=== PATIENT | female | born 1940 | race Hispanic/Latino ===

== ENCOUNTER 2019-05-10 07:16 | Day surgery (SDC) | payer MEDICARE ==
--- NOTE | 2019-05-10 07:53 | Anesthesia Consultation ---
Anesthesia Consult and Med Hx Date of service: 05/10/19 - Airway Anesthetic Teeth Evaluation: Good ROM Head & Neck: Inadequate (restricted extension) Mental/Hyoid Distance: Adequate Mallampati Class: Class II Intubation Access Assessment: Probably Good - Pulmonary Exam CTA: Yes - Cardiac Exam Cardiac Exam: RRR - Pre-Operative Health Status ASA Pre-Surgery Classification: ASA3 Proposed Anesthetic Plan: MAC - Pulmonary Hx Smoking: No SOB: Yes (on exertion) - Cardiovascular System Hx Hypertension: Yes Hx Heart Attack/AMI: No Hx Percutaneous Transluminal Coronary Angioplasty (PTCA): No Hx Cardia Arrhythmia: No - Central Nervous System CVA: No - Gastrointestinal Hx Gastroesophageal Reflux Disease: Yes (well controlled) - Endocrine Hx Renal Disease: No Hx Liver Disease: No Hx Insulin Dependent Diabetes: No Hx Non-Insulin Dependent Diabetes: No Hx Thyroid Disease: No - Other Systems Hx Obesity: Yes (BMI 32) - Additional Comments Anesthesia Medical History Comments: No prior anesthetics. PMH HTN w/ WILKINS and heart murmur noted by PCP now scheduled for STEPHANIE. Patient states that outpatient cardiac work up was concerning for "blood clot on the right side of the heart."
--- NOTE | 2019-05-10 07:53 | Anesthesia Day of Surgery ---
Anesthesia Day of Surgery - Day of Surgery Patient Examined: Yes Patient H&P Reviewed: Yes Patient is NPO: Yes
[2019-05-10] MEDS ORDERED: BENZOCAINE 20% TOP SPRAY 0.5 ML UNIT DOSE MM NR (08:00)
[2019-05-10] MEDS ORDERED: SODIUM CHLORIDE 0.9% 500 ML 500 ML IV SCH (08:00)
[2019-05-10] MEDS ORDERED: LIDOCAINE (2%) 20 MG/1 ML VIAL 20 ML MDV INFILTRATI ONE (08:01)
[2019-05-10] MEDS ORDERED: MIDAZOLAM 2 MG/2 ML INJ ONE (08:02)
[2019-05-10] MEDS ORDERED: propofoL 200 MG/20 ML VIAL IV ONE ×2 (08:02)
--- NOTE | 2019-05-10 09:52 | Post Anesthesia Evaluation ---
- Post Anesthesia Evaluation Patient Participated: Yes (awake, alert and oriented) Airway Patent: Yes Stable Respiratory Function: Yes (feels breathing has returned to baseline) Nausea/Vomiting: No Temp > 96.8F: Yes Pain Manageable: Yes Adequeate Hydration: Yes Anesthesia Complications: No Other Comments: Complains of mild scratchy throat but otherwise feels well.
[2019-05-10 10:14] LABS: Hematocrit 37.5 % (30.3-42.9); Hemoglobin 12.9 gm/dl (10.1-14.3)
[2019-05-10] MEDS ORDERED: HEPARIN 10,000 UNITS/10 ML VIAL IV ONE (10:30)
[2019-05-10] MEDS ORDERED: HEPARIN/ 0.45% NACL DRIP 25,000 UNIT/500 ML BAG IV SCH (11:00)
[2019-05-10 11:01] LABS: INR 0.98 (0.87-1.13); Partial Thromboplastin Time 24.5 Sec. (24.2-36.6)
[2019-05-10] MEDS ORDERED: HEPARIN/ 0.45% NACL DRIP 25,000 UNIT/500 ML BAG ONE (11:35)
[2019-05-10 13:02] LABS: BUN/Creatinine Ratio 20; Blood Urea Nitrogen 14 mg/dL (7-17); Calcium 9.4 mg/dL (8.4-10.2); Hemolysis Index 12
--- NOTE | 2019-05-10 13:46 | Discharge Summary ---
Short Stay Discharge Plan Diet: low fat, low cholesterol, low salt Follow up with: BELLE SQUIRES MD [Other] - 7 Days NEHA NICHOLS MD [Staff Physician] - 7 Days
[2019-05-10 14:40] VITALS: BP 178/87
== END 2019-05-10 15:18 | disposition critical access hospital (66) ==
LOC: CATHLABREC 07:16 → EDSTATUS 08:00 → CATHLABREC 15:18
PROVIDERS: ATTEND Internal Medicine
DX: R01.1 Cardiac murmur, unspecified (principal); I10 Essential (primary) hypertension; K21.9 Gastro-esophageal reflux disease without esophagitis; E78.00 Pure hypercholesterolemia, unspecified; E66.9 Obesity, unspecified; Z68.32 Body mass index [BMI] 32.0-32.9, adult; Z88.0 Allergy status to penicillin; Z79.899 Other long term (current) drug therapy; Z87.891 Personal history of nicotine dependence
CPT/HCPCS: 36415; 80048; 85014; 85018; 85049; 85610; 85730; 93312; 93320; 93325; 96365; 96366; 96374; J1644; J2250; J2704; J7040